=== PATIENT | male | born 1955 | race Two or more races ===

== ENCOUNTER → 2024-10-10 | Outpatient (CLI) | payer OTHER, SELFPAY ==
--- NOTE | 2024-10-10 11:06 | EKG_ITS ---
[facility] Test Date: 2024-10-10 Pat Name: KIESHA ASHBY Department: Room: - Gender: Male [employer]: DINO : 1955 Requested By: Isidro Bowen Order Number: [id number] Reading MD: Isidro Bowen Measurements Intervals [place] Rate: 73 P: 76 NH: 154 QRS: 59 QRSD: 93 T: 72 QT: 383 QTc: 425 Interpretive Statements SINUS RHYTHM WITH OCCASIONAL VENTRICULAR PREMATURE COMPLEXES No previous ECG available for comparison /[id number]/[id number]
[2024-10-10 11:32] LABS: Glucose,Fasting 219 mg/dL (74-106)
== END | disposition home or self-care (01) ==
PROVIDERS: PCP Family Medicine; Referring Provider Ophthalmology; Visit Provider Ophthalmology
DX: Z01.818 Encounter for other preprocedural examination (principal)
CPT/HCPCS: 36415; 82947; 93005

== ENCOUNTER → 2025-04-29 | Outpatient (CLI) | payer OTHER, SELFPAY ==
[2025-04-29 10:24] LABS: Alanine Aminotransferase 12 U/L (10-49); Albumin, Serum 4.5 gm/dL (3.4-4.8); Albumin/Globulin Ratio 1.9 (1.2-2.2); Alkaline Phosphatase 89 U/L (46-116); Anion Gap 8 (7-16); Aspartate Amino Transferase 15 U/L (0-34); BUN/Creatinine Ratio 10 Ratio (12-20); Bilirubin,Total 1.1 mg/dL (0.3-1.2); Blood Urea Nitrogen 11 mg/dL (9-23); Calcium 9.3 mg/dL (8.3-10.6); Calcium (Corrected) 9.3 mg/dL (8.5-10.1); Carbon Dioxide 27.2 mMol/L (20.0-31.0); Cardiac Risk Estimate 3.9 RATIO (4.0-6.7); Chloride 104 mMol/L (98-107); Cholesterol 142 mg/dL (132-200); Creatinine (Component) 1.1 mg/dL (0.6-1.3); Globulin 2.4 gm/dL (2.3-3.5); Glucose 167 mg/dL (74-106); HDL Cholesterol 36 mg/dL (40-60); LDL Cholesterol,Calculated 77 mg/dL (0-130); Osmolality,Calculated 280 (275-295); Potassium 4.2 mMol/L (3.4-5.1); Sodium 139 mMol/L (136-145); Total Protein 6.9 gm/dL (5.7-8.2); Triglycerides 147 mg/dL (30-150); eGFR > 60 See Note
== END | disposition home or self-care (01) ==
PROVIDERS: PCP Family Medicine; Referring Provider Specialist; Visit Provider Specialist
DX: E78.00 Pure hypercholesterolemia, unspecified (principal); I10 Essential (primary) hypertension
CPT/HCPCS: 36415; 80053; 80061

== ENCOUNTER → 2025-05-02 | Outpatient (CLI) | payer OTHER, SELFPAY ==
[2025-05-02 12:17] LABS: Collection Type, Urine Clean Catch
[2025-05-02 12:40] LABS: Bacteria,Urine Rare; Bilirubin,Urine Negative (Negative); Blood,Urine 1+ (Negative); Clarity,Urine Clear (Clear/Hazy); Color,Urine Yellow (Lt Yel-Yel); Glucose, Urine Trace (Negative); Ketones,Urine Negative (Negative); Leukocyte Esterase,Urine Negative (Negative); Nitrite,Urine Negative (Negative); PH,Urine 5.5 (5.0-7.0); Protein,Urine Trace (Neg - Trace); RBC,Urine 62 /hpf (0-3); Specific Gravity,Urine 1.025 (1.001-1.035); Squamous Epithelial Cell,Urine < 1 /hpf (0-5); Urobilinogen,Urine 3.0 mg/dL (0.0-1.0); WBC,Urine 2 /hpf (0-5)
[2025-05-02 12:50] LABS: Alanine Aminotransferase 10 U/L (10-49); Albumin, Serum 4.3 gm/dL (3.4-4.8); Albumin/Globulin Ratio 1.7 (1.2-2.2); Alkaline Phosphatase 85 U/L (46-116); Anion Gap 12 (7-16); Aspartate Amino Transferase 15 U/L (0-34); BUN/Creatinine Ratio 11 Ratio (12-20); Bilirubin,Total 0.9 mg/dL (0.3-1.2); Blood Urea Nitrogen 13 mg/dL (9-23); Calcium 9.2 mg/dL (8.3-10.6); Calcium (Corrected) 9.2 mg/dL (8.5-10.1); Carbon Dioxide 26.4 mMol/L (20.0-31.0); Chloride 104 mMol/L (98-107); Creatinine (Component) 1.2 mg/dL (0.6-1.3); Globulin 2.5 gm/dL (2.3-3.5); Glucose 155 mg/dL (74-106); Osmolality,Calculated 286 (275-295); Potassium 4.3 mMol/L (3.4-5.1); Sodium 142 mMol/L (136-145); Total Protein 6.8 gm/dL (5.7-8.2); eGFR > 60 See Note
== END | disposition home or self-care (01) ==
LOC: COPL 11:46
PROVIDERS: PCP Family Medicine; Referring Provider Family Medicine; Visit Provider Family Medicine
DX: M54.50 Low back pain, unspecified (principal)
CPT/HCPCS: 36415; 80053; 81001

== ENCOUNTER → 2025-06-09 | Outpatient (CLI) | payer OTHER, SELFPAY ==
--- NOTE | 2025-06-09 10:30 | XR_ITS ---
Examination: Retroperitoneal ultrasound, complete Technique: Multiple high resolution grayscale images of the retroperitoneum obtained, including kidneys and bladder. Date and time: June 09, 2025, 1022 hours INDICATIONS: Hematuria history episode April 22, 2025. FINDINGS: Right kidney 10.9 cm cortex 1.8 cm Left kidney 11.5 cm renal cortex 1.8 cm Moderate renal scar formation. No hydronephrosis. No bladder mass or bladder calculi. Bladder prevoid volume 270 cc Negative for prostatomegaly, negative for prostate nodules IMPRESSION: Bilateral renal cortical thinning. Moderate bilateral renal scar formation. Negative for prostatomegaly, negative for prostate nodules.
== END | disposition home or self-care (01) ==
PROVIDERS: PCP Family Medicine; Referring Provider Family Medicine; Visit Provider Family Medicine
DX: N28.89 Other specified disorders of kidney and ureter (principal); N40.0 Benign prostatic hyperplasia without lower urinary tract symptoms
CPT/HCPCS: 76770